=== PATIENT | female | born 1965 | race Caucasian/White ===

== ENCOUNTER 2016-11-20 20:52 | Emergency (ER) | payer OTHER ==
--- NOTE | ~2016-11-20 | CT16 ---
[facility] A Service of [facility] [place] RADIOLOGY TEXT RESULTS PATIENT: GIOVANI VARGAS LOCATION: SED : 61 UNIT #: [id number] AGE: [address]: Landon Solorio DO SEX: F ORDER DR: [id number] [place] [id number] E MR#: [id number] Acc #: [id number] NAME: GIOVANI VARGAS : 1965 SEX: F STUDY DATE/TIME: 11/20/2016 22:57 UNIT: SED ROOM: STUDY DESCRIPTION: CT Angio Chest for PE Attending Physician: Landon Solorio Ordering Physician: Landon Solorio MEDICAL IMAGING REPORT This report is preliminary unless electronic signature is present. EXAM CTA chest PE protocol INDICATION Left-sided chest and shoulder pain beginning last night. PROCEDURE Contrast-enhanced CTA of the chest attention on opacification of the pulmonary arteries. Coronal 3D MIP sagittal reformatted images were reconstructed and submitted. 80 mL of Isovue-370. This CT exam was performed with one or more of the following radiation dose reduction techniques: automatic exposure control, adjustment of mA and/or kV according to patient size, and iterative reconstruction. FINDINGS No evidence for a pulmonary embolus. No evidence for acute aortic injury. No adenopathy. There is dense consolidation in the lingula with a few patchy areas of nodularity in the inferior left upper lobe. No pleural fluid or pneumothorax. The no acute findings in the included upper abdomen. No aggressive-appearing bone lesion. IMPRESSION 1. No evidence for a pulmonary embolus. 2. Small area of dense consolidation in the lingula with a few patchy areas of nodularity in the left upper lobe. Findings are most in keeping with pneumonia. Correlate with patient's symptoms and recommend attention on follow up after therapy to document improvement. Dictated by... Orlando Jimenez M.D. THIS IS AN ELECTRONICALLY VERIFIED REPORT [facility] A Service of [facility] [place] RADIOLOGY TEXT RESULTS PATIENT: GIOVANI VARGAS [place] [facility] [place] 61 UNIT #: [id number] AGE: [address]: Landon Solorio DO SEX: F ORDER DR: Orlanod Jimenez M.D. at 11/21/2016 10:00 PM EED/irina TD: 11/21/2016 08:04 JOB #: [id number] MEDICAL IMAGING REPORT Page 1 of 1
--- NOTE | ~2016-11-20 | EKG ---
PATIENT: GIOVANI VARGAS UNIT #: [id number] Ventricular Rate: 100 BPM Atrial Rate: 100 BPM P-R Interval: 130 ms QRS Duration: 78 ms Q-T Interval: 374 ms QTC Calculation(Bezet): 482 ms P Palo: 5 degrees Calculated R Palo: 29 degrees Calculated T Palo: 5 degrees Diagnosis Line: Normal sinus rhythm Diagnosis Line: Nonspecific T wave abnormality Diagnosis Line: Prolonged QT Diagnosis Line: Abnormal ECG Diagnosis Line: No previous ECGs available Diagnosis Line: Confirmed by NEMESIO GARDNER MD ([id number]) on Diagnosis Line: 11/24/2016 3:22:21 PM INTERPRETING MD: JJ MARTE
--- NOTE | ~2016-11-20 | CR72 ---
[facility] A Service of [facility] RADIOLOGY TEXT RESULTS PATIENT: GIOVANI VARGAS LOCATION: SED : 61 UNIT #: [id number] AGE: [address]: Landon Solorio DO SEX: F ORDER DR: [id number] [place] [id number] E MR#: [id number] #: [id number] NAME: GIOVANI VARGAS : 1965 SEX: F STUDY DATE/TIME: 11/20/2016 21:28 UNIT: SED ROOM: STUDY DESCRIPTION: CR Chest Single View Portable Attending Physician: Landon Solorio Ordering Physician: Landon Solorio MEDICAL IMAGING REPORT This report is preliminary unless electronic signature is present. EXAM Portable chest HISTORY Chest pain left side and shoulder pain since yesterday. No injury. Cough and fever. FINDINGS Mild left inferior perihilar infiltrate or atelectasis in the lower lobe. Small calcified bilateral hilar nodes and calcified granuloma in the lateral right base. No pleural effusions. No additional infiltrates. The remainder of the chest is negative. Dictated by... Arnoldo Aguila M.D. THIS IS AN ELECTRONICALLY VERIFIED REPORT Arnoldo Aguila M.D. at 11/23/2016 10:20 AM KARIG/luzmaria TD: 11/21/2016 06:01 JOB #: [id number] MEDICAL IMAGING REPORT Page 1 of 1
[2016-11-20] MEDS ORDERED: PRAVASTATIN (21:00)
[2016-11-20 21:14] LABS: BASOPHIL% 0.3 % (0-2.5); DIFF IND NO; EOSINOPHIL# 0.1 X10e3 (0-0.7); EOSINOPHIL% 0.7 % (0.0-7.0); HEMATOCRIT 41.4 % (35.0-45.0); HEMOGLOBIN 13.9 gm/dL (12.0-16.0); LYMPHOCYTE% 14.3 % (17.0-45.0); MEAN CELL VOLUME 94.7 FL (83-96); MEAN CORPUSCULAR HEMOGLOBIN 31.9 PG (28-34); MEAN CORPUSCULAR HGB CONC 33.7 g/dL (30-36); MEAN PLATELET VOLUME 9.4 FL (6.5-11.5); MONOCYTE% 7.2 % (3.0-12.0); NEUTROPHIL# 10.6 X10e3 (1.5-7.1); NEUTROPHIL% 77.5 % (40-75); PLATELET COUNT 164 X10e3 (140-420); RED BLOOD COUNT 4.37 X10e (3.90-5.30); RED CELL DISTRIBUTION WIDTH 15.2 % (11.0-15.5); WHITE BLOOD COUNT 13.6 X10e3 (4.0-10.5)
[2016-11-20 21:21] LABS: PROTHROMBIN TIME (PATIENT) 11.7 SECONDS (9.5-12.4)
[2016-11-20 21:27] LABS: POC - CKMB <1.0 ng/mL (0.0-7.9)
[2016-11-20 21:28] LABS: POC - TROPONIN <0.05 ng/mL (<=0.05)
[2016-11-20 21:29] LABS: PARTIAL THROMBOPLASTIN TIME 28.8 SECONDS (25.6-38.1)
[2016-11-20 21:30] LABS: ALBUMIN SERUM 4.2 g/dL (3.5-5.0); BILIRUBIN, DIRECT 0.1 mg/dL (0.0-0.2); BILIRUBIN,INDIRECT 0.9 mg/dL (0.0-0.9); BUN/CREATININE RATIO 17.14; CALCIUM SERUM 9.2 mg/dL (8.4-10.2); CREATININE SERUM 0.7 mg/dL (0.6-1.4); GLOM FILT RATE Estimated 98.9 mL/min (>60); POTASSIUM 3.6 mmol/L (3.5-5.1); PROTEIN TOTAL SERUM 7.7 g/dL (6.0-8.3)
[2016-11-20 22:57] LABS: POC - CKMB <1.0 ng/mL (0.0-7.9); POC - TROPONIN <0.05 ng/mL (<=0.05)
== END 2016-11-21 00:28 | disposition home or self-care (01) ==
LOC: SED 20:52
PROVIDERS: Emergency Medicine
DX: R09.1 Pleurisy (principal); J18.9 Pneumonia, unspecified organism; Z88.0 Allergy status to penicillin
CPT/HCPCS: 36415; 71010; 71275; 80048; 80076; 82553; 84484; 85025; 85610; 85730; 93005; 96374; 99284; J2930; Q9967